=== PATIENT | male | born 1980 | race Caucasian/White ===

== ENCOUNTER 2020-07-14 16:52 | Emergency (ER) | payer OTHER ==
[~2020-07-14] VITALS: Ht 190.5 cm; Wt 117.5 kg
[2020-07-14 18:13] VITALS: BP 119/72
== END 2020-07-14 18:23 | disposition home or self-care (01) ==
LOC: M ED 16:52
DX: L98.9 Disorder of the skin and subcutaneous tissue, unspecified (principal)

== ENCOUNTER → 2022-06-10 | Outpatient (CLI) | payer OTHER ==
[~2022-06-10] MED LIST: GASTROGRAFIN SOLUTION 30ML (Q9963) As Ordered ONE; ISOVUE-370 76% 100ML VIAL As Ordered ONE
== END ==
LOC: M RAD 09:31
PROVIDERS: ATTEND Specialist
DX: I48.0 Paroxysmal atrial fibrillation (principal)

== ENCOUNTER → 2023-03-15 | Outpatient (CLI) | payer OTHER | LOC: M RAD 14:35 | DX: K81.9 Cholecystitis, unspecified (principal); K85.90 Acute pancreatitis without necrosis or infection, unspecified | CPT/HCPCS: 78227; A9537 ==